=== PATIENT | male | born 1990 | race Caucasian/White ===

== ENCOUNTER 2023-01-28 13:48 | Outpatient (CLI) | payer OTHER ==
--- NOTE | 2023-01-28 14:30 | Sleep Patient Instructions ---
Sleep Center Visit Summary - Patient Visit Information Reason for Visit: Initial consult for evaluation of sleep disordered breathing and other sleep issues. - Patient Instructions Instructions Attached: Sleep Study Additional Instructions: You will be completing a sleep study, either an in-lab polysomnography (PSG) or home sleep study (HST). You will follow-up in the sleep care office after the sleep study is completed to hear the results and talk about therapy, if needed. You will be called by our office staff to schedule this appointment, but you may contact us with any questions. - Clinic Information Contact: [facility] [address] [place] [address] [email or web address] T: [phone]
--- NOTE | 2023-01-28 14:34 | SLEEP CARE CONSULTATION ---
Information from patient questionnaire entered by Jael Reagan. I have reviewed and concur with the information entered by Jael Reagan. This document represents the service I personally performed and the decisions made by me, Angela Sanders ARNP. History of Present Illness Service Date and Time: 01/28/2023 1348 Reason for Visit: New patient Chief Complaint: reports: Unrefreshed sleep, Excessive daytime sleepiness, Fatigue Date of Onset: 6MONTHS Usual bedtime: VARIES--work schedule varies Time it takes to fall asleep: 30MIN Snores at night: No Observed to quit breathing while asleep: Yes Sleeps alone due to snoring: No Number of times waking at night: 1-2 Reasons for waking at night: reports: Snoring, Bathroom, Other (UNKNOWN). denies: Choking, Gasping for air Toss, Turn, or Twitch while sleeping: Yes Recalls having dreams: Yes Usually gets out of bed at: VARIES Feels refreshed in the morning: No Morning headache: Yes (every day; resolves with nicotine and coffee) Sleepy or fatigued during the day: Yes Ever fallen asleep while driving: No Takes day naps: No Prior sleep studies: No Additional HPI information: I had the pleasure of seeing ROSIE COELHO today regarding the possibility of him having a sleep disorder. His current complaints are unrefreshed sleep, excessive daytime sleep and fatigue. He was referred by his manager pharmaceutical to rule things out. He has been having increased stress at work with new position and he started to have heart palpitations. He was unable to focus at these times. He was put down from job and has been being evaluated by many doctors. His manager pharmaceutical's evaluated him and his heart monitor showed some skipped heart beats at 4 AM. He is taking melatonin and Valerian root supplements now on recommendation from the manager pharmaceutical. This has helped him to go to sleep. He used to have some extreme anxiety but this has resolved in last 3 months with the supplements. His says he only snores when he sleeps on his back. He does not wake up feeling rested. - Parasomnia Symptoms Ever been unable to move upon waking from sleep: No Walks in sleep: No Talks in sleep: No Ever acted out dreams in sleep: No Ever felt weak in the knees when startled or emotional: No Bothered by creepy, crawly, restless sensations in legs: No Problems with memory or concentration: Yes (both during stressful time; improved now) Subjective Initial [place] Sleepiness Scale score: 3 (01/26/23) Past Medical History Past Medical History: reports: Depression Social History The patient's occupation is a AM. Patient is and lives in [place]. Have you smoked in the past 12 months: Yes Cigarettes per day (20/pack): 2 Years of smokin Smoking Pack Years: 1.1 Alcohol use: No Caffeine use: Yes Caffeine amount and frequency: 3 CUPS A DAY Family History Family history of sleep disordered breathing: Yes Family Hx Sleep Apnea: Father: Snoring Allergies and Home Medications Known drug allergies: No Drug allergies reviewed: Yes Home medication list reviewed: Yes Allergy and home medication list: Allergies No Known Drug Allergies Allergy (Verified 01/27/23 10:23) Home Medications Medication Instructions Recorded Confirmed Last Taken Type Magnesium Oxide [Magnesium] See Rx Instructions .ROUTE .COMPLEX 01/28/23 01/28/23 Unknown History Melatonin/Pyridoxine [Melatonin 5 See Rx Instructions .ROUTE .COMPLEX 01/28/23 01/28/23 Unknown History mg Tablet] Valarian See Rx Instructions .ROUTE .COMPLEX 01/28/23 Unknown History Review of Systems Weight gain over past 5 years: 20 Psychiatric: reports: anxiety, depression Ear/Nose/Throat: reports: tonsillectomy, wisdom teeth removed Endocrine: reports: sluggishness Musculoskeletal: reports: back pain Physical Exam Vital signs obtained and entered by: JAEL Georges MA Blood Pressure: 125/89 (LEFT ARM) Cuff size: regular Heart Rate: 74 O2 Saturation: 98 Height: 6 ft Weight: 207 lb 12.8 oz Body Mass Index: 28.1 BMI Classification: Overweight Neck circumference: 17.5 Mouth and throat: narrow oropharynx Soft palate: normal Hard palate: normal Uvula: normal Uvula visualization: 50% Mallampati Class II Tongue: enlarged in size with teeth crandall on lateral edges Tonsils: absent bilaterally Neck: normal w/o lymphadenopathy or thyromegaly Heart: regular rate and rhythm Lungs: clear bilaterally Impression and Plan 1. Suspected Obstructive Sleep Apnea-Hypopnea Syndrome, as suggested by a history of loud and irregular snoring, morning headache, unrefreshed sleep, excessive daytime sleepiness and cognitive impairment. Narrow oropharynx and obesity are common predisposing factors for obstructive sleep apnea-hypopnea syndrome. I recommend proceeding to polysomnography to confirm the diagnosis and to assess severity. If the patient has significant sleep disordered breathing, a manual CPAP titration study will also be performed to find the optimal treatment pressure. I informed the patient of what the sleep studies involve and after some discussion, obtained agreement to proceed. The pathophysiology of obstructive sleep apnea-hypopnea syndrome was discussed with the patient and health risks of cardiovascular and cerebrovascular disease if not treated. Risks of drowsy driving discussed in detail and patient advised to avoid long distance driving and to dust puller at the first sign of drowsiness. Patient agreed to plan. * Schedule polysomnography * Avoid long distance driving or driving when feeling sleepy. * Avoid alcohol, sedative and muscle relaxant around bedtime. * Attempt to lose weight. * Review instructions provided by trained office staff on how to prepare for the sleep study. * Return for follow-up after sleep study completed. Counseling Topics: Weight loss health impact Plan: PSG Visit Type: In Office Time Spent with Patient (minutes): 31 Provider Statement: I spent 100% of the Face to Face Visit with the patient with greater than 50% spent counseling the patient and coordination of care.
[2023-01-28 14:39] VITALS: BP 125/89; O2SAT 98
== END 2023-01-28 13:49 | disposition home or self-care (01) ==
LOC: SC 13:48 → EDSEX 14:20
PROVIDERS: ATTEND Nurse Practitioner Family
DX: R06.83 Snoring (principal); G47.8 Other sleep disorders; R51.9 Headache, unspecified; G47.10 Hypersomnia, unspecified; R53.83 Other fatigue; F32.A Depression, unspecified; E66.3 Overweight; Z68.28 Body mass index [BMI] 28.0-28.9, adult; F17.210 Nicotine dependence, cigarettes, uncomplicated
CPT/HCPCS: 99203; 99212

== ENCOUNTER 2023-02-19 20:30 | Outpatient (CLI) | payer OTHER | END 2023-02-19 20:31 | disposition home or self-care (01) | LOC: SC 20:30 | PROVIDERS: ATTEND Nurse Practitioner Family | DX: R06.83 Snoring (principal); G47.8 Other sleep disorders; R51.9 Headache, unspecified; G47.10 Hypersomnia, unspecified; R53.83 Other fatigue; F32.A Depression, unspecified; E66.3 Overweight; Z68.28 Body mass index [BMI] 28.0-28.9, adult | CPT/HCPCS: 95810 ==

== ENCOUNTER 2023-03-04 14:20 | Outpatient (CLI) | payer OTHER ==
--- NOTE | 2023-03-04 14:47 | Sleep Patient Instructions ---
Sleep Center Visit Summary - Patient Visit Information Reason for Visit: Sleep study followup - Patient Instructions Instructions Attached: Snoring Tips Prevent Additional Instructions: Your sleep study today was negative for significant sleep disordered breathing. You were found to have episodes of snoring. There are different ways to control snoring including weight loss, oral devices made by a dentist or surgical options through ENT specialist. You should not use oral devices that do not fit properly because they can affect your bite. You should also check insurance coverage of oral devices for snoring because they may not be cover well. You may obtain a referral to an ENT specialist through your primary provider. Follow-up as needed. - Clinic Information Contact: [facility] [address] [place] [address] [email or web address] T: [phone]
--- NOTE | 2023-03-04 14:48 | SLEEP CARE CONSULTATION ---
Information from patient questionnaire entered by Sonali Reagan. I have reviewed and concur with the information entered by Sonali Reagan. This document represents the service I personally performed and the decisions made by , Angela Sanders ARNP. History of Present Illness Service Date and Time: 03/04/2023 1420 Initial [place] Sleepiness Scale score: 3 (01/26/23) Current [place] Sleepiness Scale score: 6 (03/04/23) Additional HPI information: ROSIE COELHO returns for follow up and results of the recently performed polysomnography. The patient was informed of the following findings: No significant sleep disordered breathing with an average AHI of 0.9 and deepa oxygen saturation of 89%. I explained the pathophysiology behind obstructive sleep apnea. Patient does not have sleep apnea and was advised how weight gain could increase the risk of developing sleep apnea in the future. I strongly encouraged the patient to lose weight. Patient has light snoring. Snoring can be reduced by weight loss. Weight loss is best achieved with diet consult. Patient instructed to contact PCP for referral. Snoring can also be treated with an oral appliance from a dentist. Advised to check insurance coverage. In addition, an ENT evaluation can be do to see if other treatment is indicated. Patient does not drink alcohol. Patient was cautioned about risks of drowsy driving until sleepiness symptoms resolve. Patient denies drowsy driving. Sleep Study - Results Type of Sleep Study: Polysomnography (COMPLETED 02/19/23) Prior sleep studies: No Polysomnography/Home Sleep Study results: IMPRESSION: The quality of the study is good. The patient had normal sleep efficiency. Except for mild sleep fragmentation, the sleep architecture was also normal. Respiratory monitoring showed no significant sleep disordered breathing (AHI = 0.9) or hypoxia (deepa oxygen saturation of 89%). The patient slept adequately in supine position (supine AHI = 1.3; non-supine = 0.00). Snore was intermittent and light in intensity. There was no significant periodic leg movement of sleep. Cardiac rhythm was normal sinus rhythm without significant arrhythmia. No abnormal behavior (parasomnia) observed during the night. Allergies and Home Medications Known drug allergies: No Drug allergies reviewed: Yes Home medication list reviewed: Yes (no changes) Allergy and home medication list: Allergies No Known Drug Allergies Allergy Review of Systems Review of systems same as previous: Yes (no changes) Physical Exam Vital signs obtained and entered by: ELSLI NORWOOD Blood Pressure: 137/93 (LEFT ARM) Cuff size: regular Heart Rate: 78 O2 Saturation: 99 Height: 6 ft Weight: 210 lb Body Mass Index: 28.5 BMI Classification: Overweight Impression and Plan 1. Snoring, light, but no significant sleep disordered breathing. Patient advised that often weight loss will reduce snoring as well as apnea risk. An oral appliance can also be used for snoring. This would require a dental consultation. Patient cautioned not to use other online appliances as can cause bite issues. Patient is advised to check if insurance will cover. An ENT consult can also be helpful to determine if any other treatment is an option. 2. Overweight, unspecified. Currently patients BMI is 28.5. Obesity increases the risk of apnea, CPAP pressure requirements and overall health risks especially cardiovascular and diabetes. Thus patient is advised to lose weight. * Attempt to lose weight * Avoid alcohol consumption near bedtime * The patient is cautioned about driving until sleepiness is completely resolved. * Return as needed for follow up. Counseling Topics: Weight loss health impact Follow up with Sleep Care in: as needed Visit Type: In Office Time Spent with Patient (minutes): 10 Provider Statement: I spent 100% of the Face to Face Visit with the patient with greater than 50% spent counseling the patient and coordination of care.
[2023-03-04 14:50] VITALS: BP 137/93; O2SAT 99
== END 2023-03-04 14:21 | disposition home or self-care (01) ==
LOC: SC 14:20
PROVIDERS: ATTEND Nurse Practitioner Family
DX: R06.83 Snoring (principal); E66.3 Overweight; Z68.28 Body mass index [BMI] 28.0-28.9, adult
CPT/HCPCS: 99212